=== PATIENT | male | born 1940 | race Caucasian/White ===

== ENCOUNTER 2020-03-19 15:23 | Inpatient (IN) | payer MEDICARE ==
[~2020-03-19] VITALS: Ht 185.4 cm; Wt 85.3 kg
[2020-03-19 15:35] VITALS: BP 139/82
[2020-03-19] MEDS ORDERED: ACETAMINOPHEN TAB 650MG DOSE (2X325MG) PO PRN (16:00)
--- NOTE | 2020-03-19 16:17 | HPEPDOC ---
Cupboard Builder Note DATE OF ADMISSION: 03.19.2020 DATE OF SERVICE: 03/19/2020 TIME OF ADMISSION: Please refer to physician's admission order. SOURCE OF ADMISSION INFORMATION: Medical records and patient CHIEF COMPLAINT: Left hemiparesis, siezures ADMITTING DIAGNOSES Bifrontal subarachnoid hemorrhage. Possible amyloid angiopathy. Acute bilateral strokes. Suspected focal seizures impacting left upper extremity. Hypoattenuating left thyroid lesion. HISTORY OF PRESENT ILLNESS: This is an 79-year-old gentleman with a history of hypertension, diabetes, CKD3, transferred from [facility] in [place] today. He was admitted there 03/12/2020 with new-onset left upper extremity weakness and paresthesias. CT scan was noted for hyperdensity in the bifrontal lobes and right anterior parietal lobe at the local hospital and he was transferred to [facility] for further workup and treatment of subarachnoid hemorrhage without evidence of stenosis, AVM or aneurysm. Also noted was hypoattenuating lesion in the left thyroid, TSH WNL. Neurosurgery did not feel surgical intervention required. Repeat CT 03/15/2020 noted stable. An MRI demonstrated acute lacunar infarcts bilaterally. EEG N/V EEG monitoring did not show epileptic activity, however, intermittent weakness and clumsiness of the left hand led to suspicion for focal seizures and presumptive Depakote was begun. Aspirin low-dose begun, precluded from use of NSAIDs or anticoagulants. A cardiogram was unremarkable including LUCHO. Loop recorder placed Feb. for cardioembolic source. Does not appear echo was performed. REVIEW OF SYSTEMS: The following is a completed review of systems and has been reviewed. Review of systems otherwise unremarkable. PAIN: Patient self reports no pain. EYES: No recent vision changes. EARS, NOSE, & THROAT: No throat pain, or dysphagia, or rhinorrhea. CARDIOVASCULAR: Denies chest pain or palpitations. PULMONARY: Denies shortness of breath. GASTROINTESTINAL: Denies constipation/diarrhea, last BM this morning. GENITOURINARY: Continent. MUSCULOSKELETAL: No premorbid admitted complaints NEUROLOGICAL: Left-sided weakness and incoordination, possible focal seizure activity. HEMATOLOGICAL: No prior history of bruising or significant problems. SKIN: Intact. PSYCHIATRIC: Unremarkable, apparently was some issue of behavioral change and sundowning. Currently appears stable. All other review of systems found to be negative. PAST MEDICAL HISTORY: Hypertension. CK D Delirium. Type 2 diabetes mellitus. Told he may need cataract. PAST SURGICAL HISTORY: None ALLERGIES: Please see below. MEDICATIONS: Please see below. FAMILY HISTORY: Mother at 90 after 2 cardiac procedures, father in the late 60s from an [place].. SOCIAL HISTORY: Previously entirely independent, nonsmoker, nondrinker. No substance abuse. Lives with spouse in a two-story home on the first floor, 30 steps to reach pensions from parking place with multiple steps broken. Interim plan is for daughter to drive both parents down to her more accessible home in [place], [place] and for them to stay with her. . DIET: Regular. PHYSICAL EXAMINATION: VITAL SIGNS: Please see below. GENERAL: Pleasant and cooperative, athletic appearing gentleman appearing younger than his stated age. No acute distress. Alert and oriented times three. HEENT: PERRL. Extraocular movements intact. Clear conjunctiva. No adenopathy, thyromegaly or bruits. Full for flexion, extension, bilateral bending and rotation. Cervical spine for age. CARDIOVASCULAR: Regular rate and rhythm. No murmurs, rubs, or gallops. Recent placement of Loop monitor noted over left pectoral region. LUNGS: Clear to auscultation bilaterally. No wheezes. No rhonchi. ABDOMEN: Soft, scaphoid nontender, nondistended. Positive bowel sounds. Normal active bowel sounds. NEUROLOGICAL: Alert and oriented times three. Cranial nerves II through XII intact. Able to perform 2 digit arithmetic, spell world forward and backwards, no evidence of apraxia. Sensation intact all 4 extremities. Reflexes brisk bilateral biceps, triceps, brachial radialis, patellar and Achilles tendon jerks. Hyperreflexive. Left no clonus, Babinskis present. Positive pronator drift. Left upper extremity. Bilateral decreased coordination, left worse than right on finger to nose testing. EXTREMITIES: [5\5 strength right 4 over 5 left biceps, triceps, wrist extensors, interossei. 5\5 strength right, 4+ over 5 left quadriceps, tibialis anterior, hamstrings. Full bilateral forward flexion of shoulders. Decreased range of motion of bilateral Fabere maneuver. SKIN: Intact. LABORATORY DATA: Please see below. IMAGING: Imaging documentation personally reviewed by record. FUNCTIONAL STATUS: Premorbid: Independent with all activities of daily life as well as mobility. On Admission: Minimal assistance to contact-guard assistance for lower body dressing, shower transfers. Minimal assistance with gait of 1 person for 90 feet 2. Difficulty with left lower extremity foot clearance assistance for bathing, upper body dressing, bed chair and wheelchair transfers, toilet transfers, ambulation. Minimum assistance for grooming. Supervision for memory and problem solving. Modified independence for social interaction, expression, comprehension, bowel and bladder. GOALS: Resumed complete independence in mobility, self-care, activities. 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 PLAN: Bifrontal subarachnoid hemorrhage. Possible amyloid angiopathy. Acute bilateral strokes. Suspected focal seizures impacting left upper extremity. Hypoattenuating left thyroid lesion. 1. Rehab- PT/OT advance gait and ADls, strengthen/stretch/maintain ROM all 4 limbs, pain management with appropriate modalities and accommodation medications as indicated 2. Neuro- observe for evidence of seizure activity, precautions for left sided incoordination, balance and weakness issues, monitor for cognitive changes. 3. Cardiac-appears currently stable. Will consult with hospitalist, and possibly cardiology regarding the loop monitor, and observe for adverse impact if any on increasing level of exercise intensity. 5. Endo-history of diabetes. Check pattern with continue Accu-Cheks and adjust medications as indicated 6. DVT ppx- MIGUEL A, no NSAIDS or anticoagulants s/p recent bleed. 7. Pain- Tylenol as indicated 8. Dispo- home with daughter. POST ADMISSION PHYSICIAN EVALUATION: Medical and functional status: Description of medical status, medical assessment: As above. Rehabilitation diagnosis and current and prior cold morbid medical conditions as above. Risk of complications and plans to mitigate them as above. Description of functional status current status is as above. Prior status as above. Status compared to preadmission: There are no clinically significant differences between the patient's current status and the information described on the preadmission screening document. Treatment plan anticipated: Treatment plan is as described above. Required disciplines including physical therapy, occupational therapy, others as noted above. Intensity of services: 3 hours a day, 6 days a week. Special considerations: There are no specific special or safety considerations that would likely preclude immediate implementation of an intensive rehabilitation program or subsequently influence the plan of care. ATTESTATION: Considering all the information above, it is my best judgment that this patient requires intensive rehabilitation therapy as described above and an inpatient hospital environment due to the complexity of nursing, medical, and rehabilitation needs required by the patient. Furthermore, this patient can reasonably be expected to participate in and benefit from an inpatient rehabilitation stay with an interdisciplinary team approach to the delivery of rehabilitation care under the direction and supervision of rehabilitation physician. Risk for medical clinical complications include behavioral, DVT, fall s, glycemic changes, hypertensive, or episodes, seizure and spasticity PROGNOSIS: Excellent. ESTIMATED LENGTH OF STAY:5- 7 days. PROJECTED DISCHARGE DESTINATION: Home with family support and any durable medical equipment required to increase functional safety and mobility. TIME SPENT COUNSELING AND COORDINATING INITIAL CARE: Greater than 60 minutes. Vital Signs Vital Sign - Last 24 Hours 03/19/20 15:35 Temp 98.2 Pulse 76 Resp 20 B/P (MAP) 139/82 (101) Pulse Ox 97 O2 Delivery Room Air Home Medications Scheduled Allopurinol (Allopurinol) 100 Mg Tablet, 100 MG PO DAILY, (Reported) Aspirin (Aspirin EC) 81 Mg Tablet.dr, 81 MG PO DAILY, (Reported) Divalproex Sodium (Depakote) 500 Mg Tablet.dr, 500 MG PO BID, (Reported) Docusate Sodium (Colace) 100 Mg Capsule, 100 MG PO BID, (Reported) Enoxaparin Sodium (Enoxaparin Sodium) 40 Mg/0.4 Ml Syringe, 40 MG SC DAILY, (Reported) RECEIVED AT [facility], FINISH DATE 04/16/20 Glimepiride (Glimepiride) 2 Mg Tablet, 2 MG PO ACB, (Reported) Losartan Potassium (Losartan Potassium) 100 Mg Tablet, 100 MG PO QPM, (Reported) Metformin HCl (Metformin HCl ER) 500 Mg Tab.er.24h, 500 MG PO QAM, (Reported) Multivitamins (Thera M Plus Tablet) 1 Each Tablet, 1 TAB PO DAILY, (Reported) Scheduled PRN Acetaminophen (Acetaminophen) 325 Mg Tablet, 650 MG PO Q6H PRN for PAIN, (Reported) Allergies Coded Allergies: No Known Allergies (Verified Allergy, Unknown, 03/19/20) A-FIB/CHADSVASC A-FIB History Current/History of A-Fib/PAF?: No Current PO Anticoag Therapy: No Age/Risk Factor Scoring CHADSVASC: CHADSVASC Response (Comments) Value Age Risk Factor Age >/= 75 years old 2 Total 2 RADHA NICHOLS MD Mar 19, 2020 16:17
[2020-03-19] MEDS ORDERED: ALLO100T PO (16:19)
[2020-03-19] MEDS ORDERED: DEPA1TAB3 PO (16:19)
[2020-03-19] MEDS ORDERED: VITMTA PO (16:19)
[2020-03-19] MEDS ORDERED: GLIM2TAB4 PO (16:19)
[2020-03-19] MEDS ORDERED: ASPI81TA26 PO (16:19)
[2020-03-19] MEDS ORDERED: ACET1TAB55 PO (16:19)
[2020-03-19] MEDS ORDERED: METF-838 PO (16:19)
[2020-03-19] MEDS ORDERED: LOSA100T50 PO (16:19)
[2020-03-19] MEDS ORDERED: ENOX40IN3 SC (16:20)
[2020-03-19] MEDS ORDERED: COLA100C5 PO (16:20)
[2020-03-19 20:30] VITALS: BP 155/83
[2020-03-19] MEDS: DIVALPROEX 250MG *ER* TAB PO SCH (20:43)
[2020-03-19] MEDS: DOCUSATE SODIUM 100 MG CAP PO SCH (20:43)
[2020-03-20 05:59] VITALS: BP 110/57
[2020-03-20 06:00] VITALS: BP 110/57
[2020-03-20 07:34] LABS: BASO # 0.1 10^3/uL (0.0-0.2); EOS # 0.4 10^3/uL (0.0-0.5); EOS % 3.7 % (0.0-3.0); HEMATOCRIT 45.4 % (42.0-52.0); HEMOGLOBIN 14.2 g/dl (13.5-17.5); LYMPH # 1.6 10^3/uL (1.5-5.0); LYMPH % 15.2 % (24.0-44.0); MEAN CORPUSCULAR HEMOGLOBIN 31.1 pg (27.0-33.0); MEAN CORPUSCULAR HGB CONC 31.3 g/dl (32.0-36.5); MEAN CORPUSCULAR VOLUME 99.3 fl (80.0-96.0); MONO # 0.6 10^3/uL (0.0-0.8); MONO % 5.7 % (0.0-5.0); NEUTROPHILS # 7.7 10^3/uL (1.5-8.5); NEUTROPHILS % 73.5 % (36.0-66.0); PLATELET COUNT, AUTOMATED 238 10^3/uL (150-450); RED BLOOD COUNT 4.57 10^6/uL (4.30-6.10); WHITE BLOOD COUNT 10.5 10^3/uL (4.0-10.0)
[2020-03-20 08:07] LABS: BLOOD UREA NITROGEN 19 MG/DL (7-18); CARBON DIOXIDE LEVEL 25 MEQ/L (21-32); CHLORIDE LEVEL 109 MEQ/L (98-107); CREATININE FOR GFR 1.19 MG/DL (0.70-1.30); GLOMERULAR FILTRATION RATE > 60.0 (>35); GLUCOSE, FASTING 142 MG/DL (70-100); POTASSIUM SERUM 4.6 MEQ/L (3.5-5.1); SODIUM LEVEL 142 MEQ/L (136-145)
[2020-03-20 08:08] LABS: ALBUMIN 3.1 GM/DL (3.2-5.2); ALT/SGPT 34 U/L (12-78); BILIRUBIN,TOTAL 0.6 MG/DL (0.2-1.0); CALCIUM LEVEL 8.9 MG/DL (8.8-10.2); TOTAL PROTEIN 6.6 GM/DL (6.4-8.2)
[2020-03-20] MEDS: MULTIVITAMINS/MINERALS THERAP 1 TAB PO SCH (08:29)
[2020-03-20] MEDS: GLIMEPIRIDE 2 MG TAB PO SCH (08:29)
[2020-03-20] MEDS: metFORMIN XR 500MG TAB *GLUCOPHAGE XR PO SCH (08:30)
[2020-03-20] MEDS: ASPIRIN 81 MG ENTERIC TAB PO SCH (08:30)
[2020-03-20] MEDS: DOCUSATE SODIUM 100 MG CAP PO SCH ×2 (08:30→20:18)
[2020-03-20] MEDS: allopurinoL 100 MG TAB PO SCH (08:30)
[2020-03-20] MEDS: DIVALPROEX 250MG *ER* TAB PO SCH ×2 (08:30→20:18)
[2020-03-20] MEDS: LOSARTAN 50MG TABLET PO SCH (08:36)
--- NOTE | 2020-03-20 11:19 | IPNPDOC ---
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 No significant history of cardiopulmonary or other medical conditions. REVIEW OF SYSTEMS: GASTROINTESTINAL: Denies constipation/diarrhea, last BM this morning. GENITOURINARY: Continent. MUSCULOSKELETAL: No premorbid admitted complaints NEUROLOGICAL: Left-sided weakness and incoordination, possible focal seizure activity. HEMATOLOGICAL: No prior history of bruising or significant problems. SKIN: Intact. PSYCHIATRIC: Unremarkable, apparently was some issue of behavioral change and sundowning. Currently appears stable. All other review of systems found to be negative. OBJECTIVE: PHYSICAL EXAMINATION: VITAL SIGNS: Please see below. GENERAL: Pleasant and cooperative, athletic appearing gentleman appearing younger than his stated age. No acute distress. Alert and oriented times three. HEENT: PERRL. Extraocular movements intact. Clear conjunctiva. No adenopathy, thyromegaly or bruits. Full forward flexion, extension, bilateral bending and rotation Cervical spine for age. CARDIOVASCULAR: Regular rate and rhythm. No murmurs, rubs, or gallops. Recent placement of Loop monitor noted over left pectoral region, slight ecchymosis. LUNGS: Clear to auscultation bilaterally. No wheezes. No rhonchi. ABDOMEN: Soft, scaphoid nontender, nondistended. Positive bowel sounds. Normal active bowel sounds. NEUROLOGICAL: Alert and oriented times three. Cranial nerves II through XII intact. Reflexes brisk bilateral biceps, triceps, brachial radialis, patellar and Achilles tendon jerks. Hyperreflexive. Positive pronator drift Left upper extremity. Bilateral decreased coordination, left worse than right on finger to nose testing. EXTREMITIES: [5\5 strength right 4/ 5 left biceps, triceps, wrist extensors, interossei. 5\5 strength right, 4+/ 5 left quadriceps, tibialis anterior, hamstrings. Full bilateral forward flexion of shoulders. SKIN: Intact. FUNCTIONAL STATUS: Pt currently requires CGA with transfers and ambulation without AD and Min A when performing higher level balance activities in single leg stance. GOALS: Resumed complete independence in mobility, self-care, activities. LABORATORY DATA: Reviewed. Please see below. MICROBIOLOGY: Please see below. ASSESSMENT AND PLAN: Bifrontal subarachnoid hemorrhage. Possible amyloid angiopathy. Acute bilateral strokes. Suspected initial focal seizures impacting left upper extremity. Hypoattenuating left thyroid lesion. 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 He was admitted there 03/12/2020 with new-onset left upper extremity weakness and paresthesias. CT scan was noted for hyperdensity in the bifrontal lobes and right anterior parietal lobe at the local hospital and he was transferred to [facility] for further workup and treatment of subarachnoid hemorrhage without evidence of stenosis, AVM or aneurysm. Also noted was hypoattenuating lesion in the left thyroid, TSH WNL. Neurosurgery did not feel surgical intervention required. Repeat CT 03/15/2020 noted stable. An MRI demonstrated acute lacunar infarcts bilaterally. EEG N/V EEG monitoring did not show epileptic activity, however, intermittent weakness and clumsiness of the left hand led to suspicion for focal seizures and presumptive Depakote was begun. Aspirin low-dose begun, precluded from use of NSAIDs or anticoagulants. A cardiogram was unremarkable including LUCHO. Loop recorder placed for assessment of possible cardioembolic source. PLAN: 1. Rehab- PT/OT advance gait and ADls, strengthen/stretch/maintain ROM all 4 limbs, pain management with appropriate modalities and accommodation medications as indicated, monitor for cardiac symptoms and document. 2. Neuro- observe for evidence of seizure activity, precautions for left sided incoordination, balance and weakness issues, monitor for cognitive changes. 3. Cardiac-appears currently stable. Evidently [facility] cardiology will continue to monitor the loop monitor, and observe for adverse impact if any on increasing level of exercise intensity. Instructed patient to create a log which he can record, time, date, and any new symptoms or sensations. Patient also to keep a record of his therapy schedule, so it can be correlated with any findings on the loop monitor that were asymptomatic. 5. Endo-history of diabetes. Check pattern with continue Accu-Cheks and adjust medications as indicated. FBS 135 will get HbA1c to better assess DM level of baseline control. 6. DVT ppx- MIGUEL A, no NSAIDS or anticoagulants s/p recent bleed. 7. Pain- Tylenol as indicated 8. Dispo- home with daughter in [place]. TIME SPENT: Chart Review, examination and documentation 30 minutes. Allergies Coded Allergies: No Known Allergies (Verified Allergy, Unknown, 03/19/20) Vital Signs Vital Signs Date Time Temp Pulse Resp B/P (MAP) Pulse Ox O2 Delivery O2 Flow Rate FiO2 03/20/20 08:36 144/82 03/20/20 06:00 98.1 75 18 99 Room Air Laboratory Data CBC/BMP Laboratory Tests 03/20/20 07:07 Labs 24H Laboratory Tests 2 03/19/20 20:08: Bedside Glucose (Misc Panel) 231H 03/20/20 05:47: Bedside Glucose (Misc Panel) 135H 03/20/20 07:07: Immature Granulocyte % (Auto) 0.9, Neutrophils (%) (Auto) 73.5H, Lymphocytes (%) (Auto) 15.2L, Monocytes (%) (Auto) 5.7H, Eosinophils (%) (Auto) 3.7H, Basophils (%) (Auto) 1.0, Neutrophils # (Auto) 7.7, Lymphocytes # (Auto) 1.6, Monocytes # (Auto) 0.6, Eosinophils # (Auto) 0.4, Basophils # (Auto) 0.1, Nucleated Red Blood Cells % (auto) 0.0, Anion Gap 8, Glomerular Filtration Rate > 60.0, Calcium Level 8.9, Total Bilirubin 0.6, Aspartate Amino Transf (AST/SGOT) 15, Alanine Aminotransferase (ALT/SGPT) 34, Alkaline Phosphatase 94, Total Protein 6.6, Albumin 3.1L, Albumin/Globulin Ratio 0.9 Current Medications Current Medications Current Medications Medications (Trade) Dose Ordered Sig/Parveen Route PRN Reason Start Time Stop Time Status Last Admin Dose Admin Acetaminophen (Tylenol Tab) 650 mg Q4HP PRN PO MILD PAIN (PS 1-4) 03/19/20 16:00 Allopurinol (Zyloprim) 100 mg DAILY PO 03/20/20 09:00 03/20/20 08:30 Aspirin (Ecotrin) 81 mg DAILY PO 03/20/20 09:00 03/20/20 08:30 Divalproex Sodium (Depakote Er) 500 mg Q12H PO 03/19/20 21:00 03/20/20 08:30 Docusate Sodium (Colace) 100 mg BID PO 03/19/20 21:00 03/20/20 08:30 Glimepiride (Amaryl) 2 mg DAILY@0730 PO 03/20/20 07:30 03/20/20 08:29 Home Med (Med Rec Complete!) ASDIRECTED XX 03/19/20 16:30 03/19/20 16:23 DC Losartan Potassium (Cozaar) 100 mg DAILY PO 03/20/20 09:00 03/20/20 08:36 Metformin HCl (Glucophage Xr) 500 mg DAILY PO 03/20/20 09:00 03/20/20 08:30 Multivitamins (Theragram-M) 1 tab DAILY PO 03/20/20 09:00 03/20/20 08:29 RADHA NICHOLS MD Mar 20, 2020 11:19
--- NOTE | 2020-03-20 12:23 | HPEPDOC ---
[facility] Medical History & Physical Date of Admission Mar 19, 2020 Date of Service: Mar 20, 2020 Attending Physician: Mela Desir MD History and Physical MEDICAL CONSULT H&P HISTORY OF PRESENT ILLNESS: Patient is an 79-year-old male with past medical history of hypertension, diabetes mellitus type 2, CK D stage III and recent bifrontal subarachnoid hemorrhage likely secondary to amyloid angiopathy, bilateral stroke, suspected focal seizures and left thyroid lesion who was admitted to ARU 03/19/20 for continued rehabilitation. According to notes the patient resented initially on 03/12/2020 the chief complaint of left upper extremity weakness/parasthesia. He has left arm appeared deformed and he was unable to control it. His drove him to [facility] E further assessed. CT scan showed areas of hyperdensity in the bifrontal lobes and the right anterior parietal lobe at the time. He did not receive any additional medications or intervention but was later transferred to [facility] for further evaluation. At [facility], neurosurgery was consult it but no surgical intervention was required for bifrontal subarachnoid hemorrhage. Initial CTA of the head and neck showed no stenosis AVM or aneurysm outside of the bifrontal subarachnoid hemorrhage. There was a hypoattenuating lesion in the left thyroid which was incidentally found. Repeat CT of the head was stable, MRI of the brain showed acute lacunar infarcts bilaterally. Aspirin was resumed. EEG and the EEG monitoring did not show epileptic activity however, given intermittent weakness and clumsiness of the left hand there was a suspicion for focal seizures. Depakote was started. Echocardiogram was unremarkable and LUCHO with bubble study was negative. Due to bilateral infarcts, a loop recorder was placed to evaluate for cardioembolic source. Losartan was started for hypertension. TSH was within normal limits with the incidental finding of left thyroid lesion. He was discharged to rehabilitation in our acute rehabilitation unit on 03/19/2020. On evaluation today, the patient had no acute complaints and denies chest pain, shortness of breath, nausea, vomiting, fevers, chills, abdominal pain, headedness, headaches, dizziness, numbness or tingling in arms or legs, weakness. REVIEW OF SYSTEMS: Neg except for what is mentioned above PAST MEDICAL HISTORY: 1. HTN 2. DM type II 3. CKD Stage III 4. Recent bifrontal subarachnoid hemorrhage likely 2/2 to amyloid angiopathy 5. Acute bilateral strokes cannot r/o cardioembolic cause, on loop recorder 6. Suspecting focal seizure d/o 7. Left thyroid lesion PAST SURGICAL HISTORY: None FAMILY HISTORY: Noncontributory SOCIAL HISTORY: Hx of tobacco use, denies illicit drug or alcohol use. Lives locally. Full Code. ALLERGIES: Please see below. HOME MEDICATIONS: Please see below. PHYSICAL EXAMINATION: VS: Please see below CONSTITUTIONAL: No acute distress, resting comfortably, AAO x 3 EYES: PERRLA, EOM intact HENT, MOUTH: Normocephalic, atraumatic, moist mucous membranes, NECK: SUPPLE, no JVD, no lymphadenopathy, no carotid bruit CV: Regular rate and rhythm, S1S2 normal, no murmurs/rubs/gallops RESPIRATORY: Clear to auscultation bilaterally, no rales/rhonchi/wheezes GI: BS positive in 4 quadrants, soft, nontender, nondistended, no rebound or guarding, no organomegaly : Deferred MUSCULOSKELETAL: Normal ROM. No cyanosis, clubbing, swelling, joint deformity, extremity edema INTEGUMENTARY: Intact, no rashes, no lesions, no erythema NEUROLOGIC: Cranial Nerves II-XII are intact, no focal deficits, awake alert oriented 3, no aphasia, intact to light touch sensation, strength 5 out of 5 in right arm, right leg, left leg, left arm PSYCHIATRIC: Mood and affect are normal LABORATORY DATA: Please see below IMAGING: No new imaging Please review transfer notes to see prior imaging done ASSESSMENT: 79-year-old male with past medical history of hypertension, diabetes mellitus type 2, CK D stage III and recent bifrontal subarachnoid hemorrhage likely secondary to amyloid angiopathy, bilateral stroke, suspected focal seizures and left thyroid lesion who was admitted to ARU 03/19/20 for continued rehabilitation. PLAN: Acute bilateral strokes cannot r/o cardioembolic cause, on loop recorder -No neurological deficits currently -Loop recorder managed by cardiology who placed it -C/w PT/OT, ASA. Not on statin med -F/u with Neurology Stroke clinic in 3 months at [facility]. Recent bifrontal subarachnoid hemorrhage likely 2/2 to amyloid angiopathy -No surgical intervention required -Avoid use of all blood thinning medications including Advil, naproxen, Aleve, Motrin -On ASA Suspecting focal seizure d/o -No seizure activity since admission -C/w Depakote -Regularly monitor ammonia level, CMP -Per discharge instructions, avoid driving until f/u with PCP Left thyroid lesion -TSH wnl -F/u with PCP HTN -Stable. -C/w current medications DM type II -BS >200, not well controlled -Currently on glimepiride, metformin -Was on regular diet, just switched to consistent carbohydrate diet today -May consider switching to insulins only while here if BS remain uncontrolled, will be easier to control. CKD Stage III -Cr wnl -Avoid nephrotoxic medications. DVT px -On ASA, other AC CI 2/2 to SAH above DISPOSITION: Admitted to ARU for further evaluation. Thank you kindly for consult. Please call us at any time if needed. Vital Signs Vital Signs Date Time Temp Pulse Resp B/P (MAP) Pulse Ox O2 Delivery O2 Flow Rate FiO2 03/20/20 08:36 144/82 03/20/20 06:00 98.1 75 18 99 Room Air Laboratory Data Labs 24H Laboratory Tests 2 03/19/20 20:08: Bedside Glucose (Misc Panel) 231H 03/20/20 05:47: Bedside Glucose (Misc Panel) 135H 03/20/20 07:07: Immature Granulocyte % (Auto) 0.9, Neutrophils (%) (Auto) 73.5H, Lymphocytes (%) (Auto) 15.2L, Monocytes (%) (Auto) 5.7H, Eosinophils (%) (Auto) 3.7H, Basophils (%) (Auto) 1.0, Neutrophils # (Auto) 7.7, Lymphocytes # (Auto) 1.6, Monocytes # (Auto) 0.6, Eosinophils # (Auto) 0.4, Basophils # (Auto) 0.1, Nucleated Red Blood Cells % (auto) 0.0, Anion Gap 8, Glomerular Filtration Rate > 60.0, Calcium Level 8.9, Total Bilirubin 0.6, Aspartate Amino Transf (AST/SGOT) 15, Alanine Aminotransferase (ALT/SGPT) 34, Alkaline Phosphatase 94, Total Protein 6.6, Albumin 3.1L, Albumin/Globulin Ratio 0.9 03/20/20 11:29: Bedside Glucose (Misc Panel) 196H CBC/BMP Laboratory Tests 03/20/20 07:07 Home Medications Scheduled Allopurinol (Allopurinol) 100 Mg Tablet, 100 MG PO DAILY Aspirin (Aspirin EC) 81 Mg Tablet.dr, 81 MG PO DAILY Divalproex Sodium (Depakote) 500 Mg Tablet.dr, 500 MG PO BID Docusate Sodium (Colace) 100 Mg Capsule, 100 MG PO BID Enoxaparin Sodium (Enoxaparin Sodium) 40 Mg/0.4 Ml Syringe, 40 MG SC DAILY RECEIVED AT [facility], FINISH DATE 04/16/20 Glimepiride (Glimepiride) 2 Mg Tablet, 2 MG PO ACB Losartan Potassium (Losartan Potassium) 100 Mg Tablet, 100 MG PO QPM Metformin HCl (Metformin HCl ER) 500 Mg Tab.er.24h, 500 MG PO QAM Multivitamins (Thera M Plus Tablet) 1 Each Tablet, 1 TAB PO DAILY Scheduled PRN Acetaminophen (Acetaminophen) 325 Mg Tablet, 650 MG PO Q6H PRN for PAIN Allergies Coded Allergies: No Known Allergies (Verified Allergy, Unknown, 03/19/20) A-FIB/CHADSVASC A-FIB History Current/History of A-Fib/PAF?: No Current PO Anticoag Therapy: No Age/Risk Factor Scoring CHADSVASC: CHADSVASC Response (Comments) Value Age Risk Factor Age >/= 75 years old 2 Gender Risk Factor Male 0 Hx of CHF No 0 Hx of HTN Yes 1 Hx of Stroke/TIA/or VTE Yes 2 Hx of Diabetes Yes 1 Hx of Vascular Disease No 0 Total 6 Treatment Treatment ordered: NONE Other anticoagulant ordered: on ASA only Mela Desir MD Mar 20, 2020 12:23
[2020-03-20 13:00] LABS: HEMOGLOBIN A1c 5.7 %
[2020-03-20 14:00] VITALS: BP 133/65
[2020-03-20 20:15] VITALS: BP 133/73
[2020-03-21 06:03] VITALS: BP 114/58
[2020-03-21] MEDS: allopurinoL 100 MG TAB PO SCH (07:30)
[2020-03-21] MEDS: GLIMEPIRIDE 2 MG TAB PO SCH (07:30)
[2020-03-21] MEDS: metFORMIN XR 500MG TAB *GLUCOPHAGE XR PO SCH (07:30)
[2020-03-21] MEDS: MULTIVITAMINS/MINERALS THERAP 1 TAB PO SCH (07:30)
[2020-03-21] MEDS: ASPIRIN 81 MG ENTERIC TAB PO SCH (07:31)
[2020-03-21] MEDS: DOCUSATE SODIUM 100 MG CAP PO SCH ×2 (07:31→20:39)
[2020-03-21] MEDS: LOSARTAN 50MG TABLET PO SCH (07:31)
[2020-03-21] MEDS: DIVALPROEX 250MG *ER* TAB PO SCH (07:32)
--- NOTE | 2020-03-21 08:54 | IPNPDOC ---
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 No significant history of cardiopulmonary or other medical conditions. Had a bit of excitement yesterday when spilled coffee, ran down inner left thigh with some erythema, no blisters, no breakdown. REVIEW OF SYSTEMS: GASTROINTESTINAL: Denies constipation/diarrhea, last BM this morning. GENITOURINARY: Continent. MUSCULOSKELETAL: No premorbid admitted complaints NEUROLOGICAL: Left-sided weakness and incoordination, possible focal seizure activity. HEMATOLOGICAL: No prior history of bruising or significant problems. SKIN: Intact. stage1 burn inner thigh PSYCHIATRIC: Unremarkable, apparently was some issue of behavioral change and . Currently appears stable. All other review of systems found to be negative. OBJECTIVE: PHYSICAL EXAMINATION: VITAL SIGNS: Please see below. GENERAL: Pleasant and cooperative, athletic appearing gentleman appearing younger than his stated age. No acute distress. Alert and oriented times three. HEENT: PERRL. Extraocular movements intact. Clear conjunctiva. No adenopathy, thyromegaly or bruits. Full forward flexion, extension, bilateral bending and rotation Cervical spine for age. CARDIOVASCULAR: Regular rate and rhythm. No murmurs, rubs, or gallops. Recent placement of Loop monitor noted over left pectoral region, slight ecchymosis. LUNGS: Clear to auscultation bilaterally. No wheezes. No rhonchi. ABDOMEN: Soft, scaphoid nontender, nondistended. Positive bowel sounds. Normal active bowel sounds. NEUROLOGICAL: Alert and oriented times three. Cranial nerves II through XII intact. Bilateral decreased coordination, left worse than right on finger to nose testing. EXTREMITIES: 5\5 strength right 4+/ 5 left biceps, triceps, wrist extensors, interossei. 5\5 strength right, 4+/ 5 left quadriceps, tibialis anterior, hamstrings. Full bilateral forward flexion of shoulders. No edema, no calf tenderness. SKIN: Intact no bkdwn left inner thigh FUNCTIONAL STATUS: Pt currently requires CGA with transfers and ambulation without AD and Min A when performing higher level balance activities in single leg stance. Pt (I) at baseline without use of AD. Pt and family planning d/c to daughter's home in [place] with supervision. Pt will benefit from skilled PT to progress pt dynamic balance and safety awareness prior to d/c. GOALS: Resume complete independence in mobility, self-care, activities. LABORATORY DATA: Reviewed. Please see below. MICROBIOLOGY: Please see below. ASSESSMENT AND PLAN: Bifrontal subarachnoid hemorrhage. Possible amyloid angiopathy. Acute bilateral strokes. Suspected initial focal seizures impacting left upper extremity. Hypoattenuating left thyroid lesion. 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 He was admitted there 03/12/2020 with new-onset left upper extremity weakness and paresthesias. CT scan was noted for hyperdensity in the bifrontal lobes and right anterior parietal lobe at the local hospital and he was transferred to [facility] for further workup and treatment of subarachnoid hemorrhage without evidence of stenosis, AVM or aneurysm. Also noted was hypoattenuating lesion in the left thyroid, TSH WNL. Neurosurgery did not feel surgical intervention required. Repeat CT 03/15/2020 noted stable. An MRI demonstrated acute lacunar infarcts bilaterally. EEG N/V EEG monitoring did not show epileptic activity, however, intermittent weakness and clumsiness of the left hand led to suspicion for focal seizures and presumptive Depakote was begun. Aspirin low-dose begun, precluded from use of NSAIDs or anticoagulants. A cardiogram was unremarkable including LUCHO. Loop recorder placed for assessment of possible cardioembolic source. Thus far no cardiopulmonary sympto ms or VS abnormalities. PLAN: 1. Rehab- PT/OT advance gait and ADls, strengthen/stretch/maintain ROM all 4 limbs, pain management with appropriate modalities and accommodation medications as indicated, monitor for cardiac symptoms and document. 2. Neuro- observe for evidence of seizure activity, precautions for left sided incoordination, balance and weakness issues, monitor for cognitive changes. 3. Cardiac-appears currently stable. Evidently [facility] cardiology will continue to monitor the loop monitor, and observe for adverse impact if any on increasing level of exercise intensity. Instructed patient to create a log which he can record, time, date, and any new symptoms or sensations. Patient also to keep a record of his therapy schedule, so it can be correlated with any findings on the loop monitor that were asymptomatic. 5. Endo-history of diabetes. Check pattern with continue Accu-Cheks and adjust medications as indicated. FBS 135 HbA1c 5.7 demonstrating good DM level of baseline control, will continue AM checks only, if remains stable, dc next week. 6. DVT ppx- MIGUEL A, no NSAIDS or anticoagulants s/p recent bleed. 7. Pain- Tylenol as indicated 8. Coffee burn yesterday, no adverse sequelae keep clean add topical cremes 9. Dispo- home with daughter in [place]. TIME SPENT: Chart Review, examination and documentation 30 minutes. Allergies Coded Allergies: No Known Allergies (Verified Allergy, Unknown, 03/19/20) Vital Signs Vital Signs Date Time Temp Pulse Resp B/P (MAP) Pulse Ox O2 Delivery O2 Flow Rate FiO2 03/21/20 07:31 114/58 03/21/20 06:03 97.8 68 17 97 Room Air Laboratory Data Labs 24H Laboratory Tests 2 03/20/20 11:29: Bedside Glucose (Misc Panel) 196H 03/20/20 16:16: Bedside Glucose (Misc Panel) 129H 03/20/20 19:45: Bedside Glucose (Misc Panel) 160H 03/21/20 05:28: Bedside Glucose (Misc Panel) 112H Current Medications Current Medications Current Medications Medications (Trade) Dose Ordered Sig/Parveen Route PRN Reason Start Time Stop Time Status Last Admin Dose Admin Acetaminophen (Tylenol Tab) 650 mg Q4HP PRN PO MILD PAIN (PS 1-4) 03/19/20 16:00 Allopurinol (Zyloprim) 100 mg DAILY PO 03/20/20 09:00 03/21/20 07:30 Aspirin (Ecotrin) 81 mg DAILY PO 03/20/20 09:00 03/21/20 07:31 Divalproex Sodium (Depakote Er) 500 mg Q12H PO 03/19/20 21:00 03/21/20 07:32 Docusate Sodium (Colace) 100 mg BID PO 03/19/20 21:00 03/21/20 07:31 Glimepiride (Amaryl) 2 mg DAILY@0730 PO 03/20/20 07:30 03/21/20 07:30 Home Med (Med Rec Complete!) ASDIRECTED XX 03/19/20 16:30 03/19/20 16:23 DC Losartan Potassium (Cozaar) 100 mg DAILY PO 03/20/20 09:00 03/21/20 07:31 Metformin HCl (Glucophage Xr) 500 mg DAILY PO 03/20/20 09:00 03/21/20 07:30 Multivitamins (Theragram-M) 1 tab DAILY PO 03/20/20 09:00 03/21/20 07:30 RADHA NICHOLS MD Mar 21, 2020 08:54
[2020-03-21 10:00] VITALS: BP 114/58
[2020-03-21 14:00] VITALS: BP 141/65
[2020-03-21] MEDS: DIVALPROEX 500MG *ER* TAB PO SCH ×2 (14:35→20:40)
[2020-03-21 20:00] VITALS: BP 138/77
[2020-03-22 06:01] VITALS: BP 131/64
[2020-03-22] MEDS: ASPIRIN 81 MG ENTERIC TAB PO SCH (08:33)
[2020-03-22] MEDS: DIVALPROEX 500MG *ER* TAB PO SCH ×2 (08:33→20:25)
[2020-03-22] MEDS: LOSARTAN 50MG TABLET PO SCH (08:33)
[2020-03-22] MEDS: allopurinoL 100 MG TAB PO SCH (08:33)
[2020-03-22] MEDS: MULTIVITAMINS/MINERALS THERAP 1 TAB PO SCH (08:33)
[2020-03-22] MEDS: DOCUSATE SODIUM 100 MG CAP PO SCH ×2 (08:34→20:24)
[2020-03-22] MEDS: metFORMIN XR 500MG TAB *GLUCOPHAGE XR PO SCH (08:34)
[2020-03-22] MEDS: GLIMEPIRIDE 2 MG TAB PO SCH (08:34)
[2020-03-22 14:00] VITALS: BP 122/69
[2020-03-22 20:00] VITALS: BP 138/67
[2020-03-23 06:31] VITALS: BP 113/55
[2020-03-23] MEDS: metFORMIN XR 500MG TAB *GLUCOPHAGE XR PO SCH (08:40)
[2020-03-23] MEDS: GLIMEPIRIDE 2 MG TAB PO SCH (08:40)
[2020-03-23] MEDS: allopurinoL 100 MG TAB PO SCH (08:40)
[2020-03-23] MEDS: DIVALPROEX 500MG *ER* TAB PO SCH ×2 (08:41→20:50)
[2020-03-23] MEDS: LOSARTAN 50MG TABLET PO SCH (08:41)
[2020-03-23] MEDS: MULTIVITAMINS/MINERALS THERAP 1 TAB PO SCH (08:41)
[2020-03-23] MEDS: ASPIRIN 81 MG ENTERIC TAB PO SCH (08:41)
[2020-03-23] MEDS: DOCUSATE SODIUM 100 MG CAP PO SCH ×2 (08:41→20:50)
[2020-03-23 14:00] VITALS: BP 109/62
[2020-03-23 19:50] VITALS: BP 146/85
[2020-03-24] MEDS: GLIMEPIRIDE 2 MG TAB PO SCH (07:30)
[2020-03-24] MEDS: ASPIRIN 81 MG ENTERIC TAB PO SCH (09:00)
[2020-03-24] MEDS: LOSARTAN 50MG TABLET PO SCH (09:00)
[2020-03-24] MEDS: DOCUSATE SODIUM 100 MG CAP PO SCH ×2 (09:00→21:22)
[2020-03-24] MEDS: metFORMIN XR 500MG TAB *GLUCOPHAGE XR PO SCH (09:00)
[2020-03-24] MEDS: MULTIVITAMINS/MINERALS THERAP 1 TAB PO SCH (09:00)
[2020-03-24] MEDS: allopurinoL 100 MG TAB PO SCH (09:00)
[2020-03-24] MEDS: DIVALPROEX 500MG *ER* TAB PO SCH ×2 (09:25→21:22)
--- NOTE | 2020-03-24 09:26 | PMRNOTEPD ---
PMR Note Courtesy visit made to see patient in PCU Subjective 79 year old male previously doing well with excellent progress on ARU s/p SAH, CVAs, possible cardiac arrythmia with loop monitor, who ambulated to bathroom a nd evidently had a syncopal episode on commode, straining at stool. Found by team on his knees with small abrasion over right mastoid region and posterior occipital region, confused., Transferred for monitoring. I advised hospitalist team of Loop monitor and need to correlate with [facility] team if any events noted 10.25.20 around 1999 pm. Team and patient have been keeping log ready for any symptoms or changes during therapy, thus far uneventful until last night. Objective Alert, recognizes me, no distress. GENERAL: Pleasant and cooperative, athletic appearing gentleman appearing younger than his stated age. No acute distress. Alert and oriented times three. HEENT: PERRL. Extraocular movements intact. Clear conjunctiva. No adenopathy, thyromegaly or bruits. Full forward flexion, extension, bilateral bending and rotation Cervical spine for age. CARDIOVASCULAR: Regular rate and rhythm. I/ SM. Recent placement of Loop monitor noted over left pectoral region. LUNGS: Clear to auscultation bilaterally. No wheezes. No rhonchi. ABDOMEN: Soft, scaphoid nontender, nondistended. Positive bowel sounds. Normal active bowel sounds. NEUROLOGICAL: Alert and oriented times three. Cranial nerves II through XII intact. Bilateral decreased coordination, left worse than right but slightly better strength than on admission. Assessment Bifrontal subarachnoid hemorrhage. Probable syncopal episode related to vaso-vagal event Possible amyloid angiopathy. S/p bilateral strokes with coordination, fatigue issues Suspected initial focal seizures impacting left upper extremity, covered with anti siezure meds, doubt recurrence Hypoattenuating left thyroid lesion. 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 He was admitted there 03/12/2020 with new-onset left upper extremity weakness and paresthesias. CT scan was noted for hyperdensity in the bifrontal lobes and right anterior parietal lobe at the local hospital and he was transferred to [facility] for further workup and treatment of subarachnoid hemorrhage without evidence of stenosis, AVM or aneurysm. Also noted was hypoattenuating lesion in the left thyroid, TSH WNL. Neurosurgery did not feel surgical intervention required. Repeat CT 03/15/2020 noted stable and again 03/23/2020 after last night's episode. An MRI demonstrated acute lacunar infarcts bilaterally. EEG N/V EEG monitoring did not show epileptic activity, however, intermittent weakness and clumsiness of the left hand led to suspicion for focal seizures and presumptive Depakote was begun. Aspirin low-dose begun, precluded from use of NSAIDs or anticoagulants. A cardiogram was unremarkable including LUCHO. Loop recorder placed for assessment of possible cardioembolic source, need cardiology follow up on any events that may have been captured during last night's episode and clearance to return for exercise. Plan Patient observed on Telemetry today, apparently no new events, felt stable, will return to ARU. Await any updates from [facility] cardiology, continue log of activities and any symptoms, monitor VS. Resume all therapies tomorrow. RADHA NICHOLS MD Mar 24, 2020 09:26
[2020-03-24 18:42] VITALS: BP 110/69
[2020-03-24 20:15] VITALS: BP 131/69
[2020-03-25 05:51] VITALS: BP 127/67
[2020-03-25] MEDS: metFORMIN XR 500MG TAB *GLUCOPHAGE XR PO SCH (08:02)
[2020-03-25] MEDS: ASPIRIN 81 MG ENTERIC TAB PO SCH (08:02)
[2020-03-25] MEDS: DIVALPROEX 500MG *ER* TAB PO SCH ×2 (08:02→21:13)
[2020-03-25] MEDS: allopurinoL 100 MG TAB PO SCH (08:02)
[2020-03-25] MEDS: MULTIVITAMINS/MINERALS THERAP 1 TAB PO SCH (08:04)
[2020-03-25] MEDS: DOCUSATE SODIUM 100 MG CAP PO SCH ×2 (08:04→21:13)
[2020-03-25] MEDS: LOSARTAN 50MG TABLET PO SCH (08:04)
[2020-03-25] MEDS: MIRALAX *UNIT DOSE* 17GM PACKET PO SCH (08:04)
[2020-03-25] MEDS: GLIMEPIRIDE 2 MG TAB PO SCH (08:04)
[2020-03-25 14:00] VITALS: BP 117/65
--- NOTE | 2020-03-25 14:07 | IPNPDOC ---
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 No significant history of cardiopulmonary or other medical conditions. Had a bit of excitement over the weekend with overnight stay on telemetry after probable vasovagal/syncopal episode, no reported abnormalities on [place] remote monitoring, returned to floor last night and participated well in all therapies today, no new complaints. REVIEW OF SYSTEMS: GASTROINTESTINAL: Denies constipation/diarrhea, regular BM, less straining with addition of PEG GENITOURINARY: Continent. MUSCULOSKELETAL: No premorbid admitted complaints. Therapists note asymmetry in calf size, R>L by 2cm, no complaint of pain, tenderness or swelling, is right dominant. NEUROLOGICAL: Left-sided weakness and incoordination, possible history of focal seizure activity, none observed on unit. HEMATOLOGICAL: No prior history of bruising or significant problems. SKIN: Intact. PSYCHIATRIC: Unremarkable, apparently was some issue of behavioral change and sundowning at prior facility. Currently appears stable. All other review of systems found to be negative. OBJECTIVE: PHYSICAL EXAMINATION: VITAL SIGNS: Please see below. GENERAL: Pleasant and cooperative, athletic appearing gentleman appearing younger than his stated age. No acute distress. Alert and oriented times three. HEENT: PERRL. Extraocular movements intact. Clear conjunctiva. No adenopathy, thyromegaly or bruits. Full forward flexion, extension, bilateral bending and rotation Cervical spine for age. CARDIOVASCULAR: Regular rate and rhythm. No murmurs, rubs, or gallops. Recent placement of Loop monitor noted over left pectoral region. LUNGS: Clear to auscultation bilaterally. No wheezes. No rhonchi. ABDOMEN: Soft, scaphoid nontender, nondistended. Positive bowel sounds. Normal active bowel sounds. NEUROLOGICAL: Alert and oriented times three. Cranial nerves II through XII intact. Bilateral decreased coordination, improvement in rapid alternating movements bilateral hands, left worse than right, much less pass pointing on fi nger to nose testing left worse than right, bilateral involvement. EXTREMITIES: 5\5 strength right 4+/ 5 left biceps, triceps, wrist extensors, interossei. 5\5 strength right, 4+/ 5 left quadriceps, tibialis anterior, hamstrings. Full bilateral forward flexion of shoulders. No edema, no calf tenderness. SKIN: Intact FUNCTIONAL STATUS: Standby assistance for sit to stand, contact guard assistance bed to chair, poor dynamic standing and weight shifting with increase in balance noted, however, his inability 170 feet with contact guard assist. Reconsideration feasible rolling walker for improved safety and balance in the home environment, patient instruction for optimal motor planning underway. Patient continues to benefit from skilled PT to progress dynamic balance, safety awareness, evaluation for cardiac effects. GOALS: Resume complete safe independence in mobility, self-care, activities. LABORATORY DATA: Reviewed. Please see below. MICROBIOLOGY: Please see below. ASSESSMENT AND PLAN: Bifrontal subarachnoid hemorrhage. S/P recent syncopal episode, probable vasovagal reaction Possible amyloid angiopathy. Acute bilateral strokes. Suspected initial focal seizures impacting left upper extremity. Hypoattenuating left thyroid lesion. 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 He was admitted there 03/12/2020 with new-onset left upper extremity weakness and paresthesias. CT s can was noted for hyperdensity in the bifrontal lobes and right anterior parietal lobe at the local hospital and he was transferred to [facility] for further workup and treatment of subarachnoid hemorrhage without evidence of stenosis, AVM or aneurysm. Also noted was hypoattenuating lesion in the left thyroid, TSH WNL. Neurosurgery did not feel surgical intervention required. Repeat CT 03/15/2020 noted stable. An MRI demonstrated acute lacunar infarcts bilaterally. EEG N/V EEG monitoring did not show epileptic activity, however, intermittent weakness and clumsiness of the left hand led to suspicion for focal seizures and presumptive Depakote was begun. Aspirin low-dose begun, precluded from use of NSAIDs or anticoagulants. A cardiogram was unremarkable including LUCHO. Loop recorder placed for assessment of possible cardioembolic source. Thus far no cardiopulmonary symptoms or VS abnormalities , despite recent syncopal episode associated with straining at stool, overnight evaluation on Telemetry revealed no reported abnormalities. PLAN: 1. Rehab- PT/OT advance gait and ADls, strengthen/stretch/maintain ROM all 4 limbs, pain management with appropriate modalities and accommodation medications as indicated, monitor for cardiac symptoms and document. 2. Neuro- observe for evidence of seizure activity, precautions for left sided incoordination, balance and weakness issues, monitor for cognitive changes. 3. Cardiac-appears currently stable. [facility] cardiology will continue to monitor the loop monitor, and observe for adverse impact if any on increasing level of exercise intensity. Instructed patient to create a log which he can record, time, date, and any new symptoms or sensations. Patient also to keep a record of his therapy schedule, so it can be correlated with any findings on the loop monitor that were asymptomatic. 5. Endo-history of diabetes. HbA1c 5.7 demonstrating good DM level of baseline control, DC accuchecks to as needed 6. DVT ppx- MIGUEL A, no NSAIDS or anticoagulants s/p recent bleed. 7. Pain- Tylenol as indicated 8. Dispo- home with and daughter in interim then transition to [place]. TIME SPENT: Chart Review, examination and documentation 30 minutes. Allergies Coded Allergies: No Known Allergies (Verified Allergy, Unknown, 03/19/20) Vital Signs Vital Signs Date Time Temp Pulse Resp B/P (MAP) Pulse Ox O2 Delivery O2 Flow Rate FiO2 03/25/20 08:04 122/76 03/25/20 05:51 98.1 66 18 93 Room Air Laboratory Data Labs 24H Laboratory Tests 2 03/25/20 05:40: Bedside Glucose (Misc Panel) 129H Current Medications Current Medications Current Medications Medications (Trade) Dose Ordered Sig/Parveen Route PRN Reason Start Time Stop Time Status Last Admin Dose Admin Acetaminophen (Tylenol Tab) 650 mg Q4HP PRN PO MILD PAIN (PS 1-4) 03/19/20 16:00 Allopurinol (Zyloprim) 100 mg DAILY PO 03/20/20 09:00 03/25/20 08:02 Aspirin (Ecotrin) 81 mg DAILY PO 03/20/20 09:00 03/25/20 08:02 Divalproex Sodium (Depakote Er) 500 mg Q12H PO 03/19/20 21:00 03/21/20 09:25 DC 03/21/20 07:32 Divalproex Sodium (Depakote Er) 500 mg Q12H PO 03/21/20 09:25 03/25/20 08:02 Docusate Sodium (Colace) 100 mg BID PO 03/19/20 21:00 03/25/20 08:04 Glimepiride (Amaryl) 2 mg DAILY@0730 PO 03/20/20 07:30 03/25/20 08:04 Home Med (Med Rec Complete!) ASDIRECTED XX 03/19/20 16:30 03/19/20 16:23 DC Losartan Potassium (Cozaar) 100 mg DAILY PO 03/20/20 09:00 03/25/20 08:04 Metformin HCl (Glucophage Xr) 500 mg DAILY PO 03/20/20 09:00 03/25/20 08:02 Multivitamins (Theragram-M) 1 tab DAILY PO 03/20/20 09:00 03/25/20 08:04 Polyethylene Glycol (Miralax) 1 pkt DAILY PO 03/25/20 09:00 03/25/20 08:04 RADHA NICHOLS MD Mar 25, 2020 14:07
[2020-03-25 20:00] VITALS: BP 130/80
[2020-03-26 06:00] VITALS: BP 126/77
[2020-03-26] MEDS: DIVALPROEX 500MG *ER* TAB PO SCH ×2 (08:35→21:01)
[2020-03-26] MEDS: DOCUSATE SODIUM 100 MG CAP PO SCH ×2 (08:35→21:01)
[2020-03-26] MEDS: allopurinoL 100 MG TAB PO SCH (08:35)
[2020-03-26] MEDS: ASPIRIN 81 MG ENTERIC TAB PO SCH (08:36)
[2020-03-26] MEDS: MULTIVITAMINS/MINERALS THERAP 1 TAB PO SCH (08:36)
[2020-03-26] MEDS: GLIMEPIRIDE 2 MG TAB PO SCH (08:36)
[2020-03-26] MEDS: metFORMIN XR 500MG TAB *GLUCOPHAGE XR PO SCH (08:36)
[2020-03-26] MEDS: LOSARTAN 50MG TABLET PO SCH (08:36)
[2020-03-26] MEDS: MIRALAX *UNIT DOSE* 17GM PACKET PO SCH (08:37)
--- NOTE | 2020-03-26 11:50 | IPNPDOC ---
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 No significant history of ca rdiopulmonary or other medical conditions. Had a bit of excitement over the weekend with overnight stay on telemetry after probable vasovagal/syncopal episode, no reported abnormalities on [place] remote monitoring, returned to floor and participated well in all therapies since, no new complaints. Balance coordination and instability remaining him at risk for fall been detected during therapy interventions, ongoing, patient education and institution of use of a walker to be helping. REVIEW OF SYSTEMS: GASTROINTESTINAL: Denies constipation/diarrhea, regular BM, less straining with addition of PEG GENITOURINARY: Continent. MUSCULOSKELETAL: No premorbid admitted complaints. Therapists noted asymmetry in calf size, R>L by 2cm, no complaint of pain, tenderness or swelling, is right dominant. NEUROLOGICAL: Left-sided weakness and incoordination, possible history of focal seizure activity, none observed on unit. HEMATOLOGICAL: No prior history of bruising or significant problems. SKIN: Intact. PSYCHIATRIC: Unremarkable, apparently was some issue of behavioral change and sundowning at prior facility. Currently appears stable. All other review of systems found to be negative. OBJECTIVE: PHYSICAL EXAMINATION: VITAL SIGNS: Please see below. GENERAL: Pleasant and cooperative, athletic appearing gentleman appearing younger than his stated age. No acute distress. Alert and oriented times three. HEENT: PERRL. Extraocular movements intact. Clear conjunctiva. No adenopathy, thyromegaly or bruits. Full forward flexion, extension, bilateral bending and rotation Cervical spine for age. CARDIOVASCULAR: Regular rate and rhythm. No murmurs, rubs, or gallops. Recent placement of Loop monitor over left pectoral region. LUNGS: Clear to auscultation bilaterally. No wheezes. No rhonchi. ABDOMEN: Soft, scaphoid nontender, nondistended. Positive bowel sounds. Normal active bowel sounds. NEUROLOGICAL: Alert and oriented times three. Cranial nerves II through XII intact. Bilateral decreased coordination, improvement in rapid alternating movements bilateral hands, left worse than right, much less pass pointing on finger to nose testing left worse than right, bilateral involvement. EXTREMITIES: 5\5 strength right 4+/ 5 left biceps, triceps, wrist extensors, interossei. 5\5 strength right, 4+/ 5 left quadriceps, tibialis anterior, hamstrings. Full bilateral forward flexion of shoulders. No edema, no calf tenderness. SKIN: Intact FUNCTIONAL STATUS: Standby assistance for sit to stand, contact guard assistance bed to chair, poor dynamic standing and weight shifting with increase in balance noted, however, increasing safety and ambulation with use of a rolling walker, which will translate into improved safety and balance in the home environment, patient instruction for optimal motor planning underway. Patient continues to benefit from skilled PT to progress dynamic balance, safety awareness, with ongoing monitoring for cardiac effects. GOALS: Resume complete safe independence in mobility, self-care, activities. LABORATORY DATA: Reviewed. Please see below. MICROBIOLOGY: Please see below. ASSESSMENT AND PLAN: Bifrontal subarachnoid hemorrhage. S/P recent syncopal episode, probable vasovagal reaction Possible amyloid angiopathy. Acute bilateral strokes. Suspected initial focal seizures impacting left upper extremity. Hypoattenuating left thyroid lesion. 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 He was admitted there 03/12/2020 with new-onset left upper extremity weakness and paresthesias. CT scan was noted for hyperdensity in the bifrontal lobes and right anterior parietal lobe at the local hospital and he was transferred to [facility] for further workup and treatment of subarachnoid hemorrhage without evidence of stenosis, AVM or aneurysm. Also noted was hypoattenuating lesion in the left thyroid, TSH WNL. Neurosurgery did not feel surgical intervention required. Repeat CT 03/15/2020 noted stable. An MRI demonstrated acute lacunar infarcts bilaterally. EEG N/V EEG monitoring did not show epileptic activity, however, intermittent weakness and clumsiness of the left hand led to suspicion for focal seizures and presumptive Depakote was begun. Aspirin low-dose begun, precluded from use of NSAIDs or anticoagulants. A cardiogram was unremarkable including LUCHO. Loop recorder placed for assessment of possible cardioembolic source. Thus far no VS abnormalities , despite recent syncopal episode associated with straining at stool, overnight evaluation on Telemetry revealed no reported abnormalities. PLAN: 1. Rehab- PT/OT advance gait and ADls, strengthen/stretch/maintain ROM all 4 limbs, pain management with appropriate modalities and accommodation medications as indicated, monitor for cardiac symptoms and document. 2. Neuro- observe for evidence of seizure activity, precautions for left sided incoordination, balance and weakness issues, monitor for cognitive changes. 3. Cardiac-appears currently stable. [facility] cardiology will continue to monitor the loop monitor, and observe for adverse impact if any on increasing level of exercise intensity. Instructed patient to create a log which he can record, time, date, and any new symptoms or sensations. Patient also to keep a record of his therapy schedule, so it can be correlated with any findings on the loop monitor that were asymptomatic. 5. Endo-history of diabetes. HbA1c 5.7 demonstrating good DM level of baseline control, DC accuchecks to as needed 6. DVT ppx- MIGUEL A, no NSAIDS or anticoagulants s/p recent bleed. 7. Pain- Tylenol as indicated 8. Dispo- home with and daughter in interim then transition to [place]. TIME SPENT: Chart Review, examination and documentation 30 minutes. TIME SPENT: Chart Review, examination and documentation minutes. Allergies Coded Allergies: No Known Allergies (Verified Allergy, Unknown, 03/19/20) Vital Signs Vital Signs Date Time Temp Pulse Resp B/P (MAP) Pulse Ox O2 Delivery O2 Flow Rate FiO2 03/26/20 08:36 126/77 03/26/20 06:00 98.7 66 16 95 Room Air Current Medications Current Medications Current Medications Medications (Trade) Dose Ordered Sig/Parveen Route PRN Reason Start Time Stop Time Status Last Admin Dose Admin Acetaminophen (Tylenol Tab) 650 mg Q4HP PRN PO MILD PAIN (PS 1-4) 03/19/20 16:00 Allopurinol (Zyloprim) 100 mg DAILY PO 03/20/20 09:00 03/26/20 08:35 Aspirin (Ecotrin) 81 mg DAILY PO 03/20/20 09:00 03/26/20 08:36 Divalproex Sodium (Depakote Er) 500 mg Q12H PO 03/19/20 21:00 03/21/20 09:25 DC 03/21/20 07:32 Divalproex Sodium (Depakote Er) 500 mg Q12H PO 03/21/20 09:25 03/26/20 08:35 Docusate Sodium (Colace) 100 mg BID PO 03/19/20 21:00 03/26/20 08:35 Glimepiride (Amaryl) 2 mg DAILY@0730 PO 03/20/20 07:30 03/26/20 08:36 Home Med (Med Rec Complete!) ASDIRECTED XX 03/19/20 16:30 03/19/20 16:23 DC Losartan Potassium (Cozaar) 100 mg DAILY PO 03/20/20 09:00 03/26/20 08:36 Metformin HCl (Glucophage Xr) 500 mg DAILY PO 03/20/20 09:00 03/26/20 08:36 Multivitamins (Theragram-M) 1 tab DAILY PO 03/20/20 09:00 03/26/20 08:36 Polyethylene Glycol (Miralax) 1 pkt DAILY PO 03/25/20 09:00 03/25/20 08:04 RADHA NICHOLS MD Mar 26, 2020 11:50
[2020-03-26 14:00] VITALS: BP 119/69
[2020-03-26 20:00] VITALS: BP 143/78
[2020-03-27 06:00] VITALS: BP 136/71
[2020-03-27] MEDS: GLIMEPIRIDE 2 MG TAB PO SCH (07:49)
[2020-03-27] MEDS: LOSARTAN 50MG TABLET PO SCH (07:49)
[2020-03-27] MEDS: ASPIRIN 81 MG ENTERIC TAB PO SCH (07:49)
[2020-03-27] MEDS: allopurinoL 100 MG TAB PO SCH (07:49)
[2020-03-27] MEDS: MULTIVITAMINS/MINERALS THERAP 1 TAB PO SCH (07:49)
[2020-03-27] MEDS: MIRALAX *UNIT DOSE* 17GM PACKET PO SCH (07:50)
[2020-03-27] MEDS: DOCUSATE SODIUM 100 MG CAP PO SCH ×2 (07:50→19:55)
[2020-03-27] MEDS: metFORMIN XR 500MG TAB *GLUCOPHAGE XR PO SCH (07:50)
[2020-03-27] MEDS: DIVALPROEX 500MG *ER* TAB PO SCH ×2 (07:50→19:55)
--- NOTE | 2020-03-27 10:54 | IPNPDOC ---
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 No significant history of cardiopulmonary or other medical conditions. Had a bit of excitement over the weekend with overnight stay on telemetry after probable vasovagal/syncopal episode, no reported abnormalities on [place] remote monitoring, returned to floor and participated well in all therapies since, no new complaints. Balance coordination and instability continue to place him at risk for falls, recommendation is for use of a walker upon discharge for safety in ambulation. REVIEW OF SYSTEMS: GASTROINTESTINAL: Denies constipation/diarrhea, regular BM, less straining with addition of miralax GENITOURINARY: Continent. MUSCULOSKELETAL: No premorbid admitted complaints. NEUROLOGICAL: Left-sided weakness and incoordination, possible history of focal seizure activity, none observed on unit. HEMATOLOGICAL: No prior history of bruising or significant problems. SKIN: Intact. PSYCHIATRIC: Unremarkable, apparently was some issue of behavioral change and sundowning at prior facility. Currently appears stable. All other review of systems found to be negative. OBJECTIVE: PHYSICAL EXAMINATION: VITAL SIGNS: Please see below. GENERAL: Pleasant and cooperative, athletic appearing gentleman appearing younger than his stated age. No acute distress. Alert and oriented times three. HEENT: PERRL. Extraocular movements intact. Clear conjunctiva. Healing small abrasion frontal area. CARDIOVASCULAR: Regular rate and rhythm. No murmurs, rubs, or gallops. Recent placement of Loop monitor over left pectoral region. LUNGS: Clear to auscultation bilaterally. No wheezes. No rhonchi. ABDOMEN: Soft, scaphoid nontender, nondistended. Positive bowel sounds. Normal active bowel sounds. NEUROLOGICAL: Alert and oriented times three. Cranial nerves II through XII intact. Bilateral decreased coordination, improvement in rapid alternating movements bilateral hands, left worse than right, much less pass pointing on finger to nose testing left worse than right, bilateral involvement. EXTREMITIES: 5\5 strength right 4+/ 5 left biceps, triceps, wrist extensors, interossei. 5\5 strength right, 4+/ 5 left quadriceps, tibialis anterior, hamstrings. Full bilateral forward flexion of shoulders. No edema, no calf tenderness. SKIN: Intact FUNCTIONAL STATUS: Standby assistance for sit to stand, contact guard assistance bed to chair, poor dynamic standing and weight shifting with increase in balance noted, however, increasing safety and ambulation with use of a rolling walker, which will translate into improved safety and balance in the home environment, patient instruction for optimal motor planning underway. Continue safety awareness, with ongoing monitoring for cardiac effects. GOALS: Resume complete safe independence in mobility, self-care, activities. LABORATORY DATA: Reviewed. Please see below. MICROBIOLOGY: Please see below. ASSESSMENT AND PLAN: Bifrontal subarachnoid hemorrhage. S/P recent syncopal episode, probable vasovagal reaction Possible amyloid angiopathy. Acute bilateral strokes. Suspected initial focal seizures impacting left upper extremity. Hypoattenuating left thyroid lesion. 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 He was admitted there 03/12/2020 with new-onset left upper extremity weakness and paresthesias. CT scan was noted for hyperdensity in the bifrontal lobes and right anterior parietal lobe at the local hospital and he was transferred to [facility] for further workup and treatment of subarachnoid hemorrhage without evidence of stenosis, AVM or aneurysm. Also noted was hypoattenuating lesion in the left thyroid, TSH WNL. Neurosurgery did not feel surgical intervention required. Repeat CT 03/15/2020 noted stable. An MRI demonstrated acute lacunar infarcts bilaterally. EEG N/V EEG monitoring did not show epileptic activity, however, intermittent weakness and clumsiness of the left hand led to suspicion for focal seizures and presumptive Depakote was begun. Aspirin low-dose begun, precluded from use of NSAIDs or anticoagulants. A cardiogram was unremarkable including LUCHO. Loop recorder placed for assessment of possible cardioembolic so urce. Thus far no VS abnormalities , despite recent syncopal episode associated with straining at stool, overnight evaluation on Telemetry revealed no reported abnormalities, continues to progress in strength and coordination without adverse events in rehab program. PLAN: 1. Rehab- PT/OT advance gait and ADls, strengthen/stretch/maintain ROM all 4 limbs, pain management with appropriate modalities and accommodation medications as indicated, monitor for cardiac symptoms and document. 2. Neuro- observe for evidence of seizure activity, precautions for left sided incoordination, balance and weakness issues, monitor for cognitive changes. 3. Cardiac-appears currently stable. [facility] cardiology will continue to monitor the loop monitor, and observe for adverse impact if any on increasing level of exercise intensity. Instructed patient to create a log which he can record, time, date, and any new symptoms or sensations. Patient also to keep a record of his therapy schedule, so it can be correlated with any findings on the loop monitor that were asymptomatic. Will need follow up with PMD and Cardiology on discharge. 5. Endo-history of diabetes. HbA1c 5.7 demonstrating good DM level of baseline control, DC accuchecks to as needed 6. DVT ppx- MIGUEL A, no NSAIDS or anticoagulants s/p recent bleed. 7. Pain- Tylenol as indicated 8. Dispo- home with and daughter in interim then transition to [place]. TIME SPENT: Chart Review, examination and documentation 30 minutes. Allergies Coded Allergies: No Known Allergies (Verified Allergy, Unknown, 03/19/20) Vital Signs Vital Signs Date Time Temp Pulse Resp B/P (MAP) Pulse Ox O2 Delivery O2 Flow Rate FiO2 03/27/20 07:49 136/71 03/27/20 06:00 98.7 57 18 95 Room Air Current Medications Current Medications Current Medications Medications (Trade) Dose Ordered Sig/Parveen Route PRN Reason Start Time Stop Time Status Last Admin Dose Admin Acetaminophen (Tylenol Tab) 650 mg Q4HP PRN PO MILD PAIN (PS 1-4) 03/19/20 16:00 Allopurinol (Zyloprim) 100 mg DAILY PO 03/20/20 09:00 03/27/20 07:49 Aspirin (Ecotrin) 81 mg DAILY PO 03/20/20 09:00 03/27/20 07:49 Divalproex Sodium (Depakote Er) 500 mg Q12H PO 03/19/20 21:00 03/21/20 09:25 DC 03/21/20 07:32 Divalproex Sodium (Depakote Er) 500 mg Q12H PO 03/21/20 09:25 03/27/20 07:50 Docusate Sodium (Colace) 100 mg BID PO 03/19/20 21:00 03/26/20 21:01 Glimepiride (Amaryl) 2 mg DAILY@0730 PO 03/20/20 07:30 03/27/20 07:49 Home Med (Med Rec Complete!) ASDIRECTED XX 03/19/20 16:30 03/19/20 16:23 DC Losartan Potassium (Cozaar) 100 mg DAILY PO 03/20/20 09:00 03/27/20 07:49 Metformin HCl (Glucophage Xr) 500 mg DAILY PO 03/20/20 09:00 03/27/20 07:50 Multivitamins (Theragram-M) 1 tab DAILY PO 03/20/20 09:00 03/27/20 07:49 Polyethylene Glycol (Miralax) 1 pkt DAILY PO 03/25/20 09:00 03/25/20 08:04 RADHA NICHOLS MD Mar 27, 2020 10:54
[2020-03-27 14:00] VITALS: BP 100/55
[2020-03-27 20:00] VITALS: BP 116/55
[2020-03-28 05:55] VITALS: BP 135/64
[2020-03-28] MEDS ORDERED: PEG1POW PO (08:26)
[2020-03-28 08:52] VITALS: BP 121/59
[2020-03-28] MEDS: ASPIRIN 81 MG ENTERIC TAB PO SCH (08:54)
--- NOTE | 2020-03-28 08:54 | DS.PDOC ---
PM&R Discharge Summary [employer] Of [employer]ights [employer] Measures Discharge Note DATE OF ADMISSION: Mar 03, 2020 at 18:30 DATE OF DISCHARGE: 03.28.2020 DISCHARGE DIAGNOSES: Bifrontal subarachnoid hemorrhage. S/P recent syncopal episode, probable vasovagal reaction Possible amyloid angiopathy. Acute bilateral strokes. Suspected initial focal seizures impacting left upper extremity. Hypoattenuating left thyroid lesion. 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 During acute hospitalization, possible jerking (tone?) movements of left upper extremity noted, neg EEG, VEEG, placed empirically on Depakote for possible siezure disorder. A loop monitor was also placed to assess for possible cardioembolic phenomenon, monitored by [facility] cardiology team. No significant previous history of cardiopulmonary or other medical conditions. Rehabilitation unit course showed good progress overall despite an overnight stay on telemetry after probable vasovagal/syncopal episode, fell off toilet associated with straining during BM, no reported abnormalities on [place] remote monitoring, he returned to floor and participated well in all therapies since, no new complaints. Balance coordination and instability continue to place him at risk for falls, recommendation is for use of a walker upon discharge for safety in ambulation. PHYSICAL EXAMINATION: GENERAL: Pleasant and cooperative, athletic appearing gentleman appearing younger than his stated age. No acute distress. Alert and oriented times three. HEENT: PERRL. Extraocular movements intact. Clear conjunctiva. Healing nontender small abrasion frontal area, no tenderness mastoid regions or cervical spine. CARDIOVASCULAR: Regular rate and rhythm. No murmurs, rubs, or gallops. Recent placement of Loop monitor over left pectoral region. LUNGS: Clear to auscultation bilaterally. No wheezes. No rhonchi. ABDOMEN: Soft, scaphoid nontender, nondistended. Positive bowel sounds. Normal active bowel sounds. NEUROLOGICAL: Alert and oriented times three. Cranial nerves II through XII intact. Bilateral decreased coordination, improvement in rapid alternating movements bilateral hands, left worse than right, much less pass pointing on finger to nose testing left worse than right, bilateral involvement. EXTREMITIES: 5\5 strength right 4+/ 5 left biceps, triceps, wrist extensors, interossei. 5\5 strength right, 4+/ 5 left quadriceps, tibialis anterior, hamstrings. Full bilateral forward flexion of shoulders. No edema, no calf tende rness. SKIN: Intact FUNCTIONAL STATUS AT DISCHARGE: Standby assistance for sit to stand, contact guard assistance bed to chair, poor dynamic standing and weight shifting with increase in balance noted, however, increasing safety and ambulation with use of a rolling walker, which will translate into improved safety and balance in the home environment, patient instruction for optimal motor planning underway. Continue safety awareness, with ongoing monitoring for cardiac effects. OTHER TESTS: LABORATORY DATA: Please see below. ALLERGIES: See below. MEDICATIONS: See Below. DISCHARGE DISPOSITION: Discharge to interim facility then travelling with daughter and to [place], will need follow up with a -PMD regarding DM (very well controlled on current regimen Hb A1C 5.7), HTN-may need downward adjustment in meds with hypotensive episodes on griffiths, suggest home BP monitoring and adjust dosing to maintain SBP>110 < 140, follow up thyroid nodule -[employer] and [facility] regarding Loop monitor management plan -Neurology regarding CVA, SAH and possible siezures possible amyloid angiopathy and follow up evaluation and length of time and need to continue Depakote or other medications -Home health care at final destination. Vital Signs/I&O Vital Sign - Last 24 Hours 03/27/20 03/27/20 03/28/20 03/28/20 14:00 20:00 05:55 08:52 Temp 98.2 98.2 99.0 98.5 Pulse 83 72 65 79 Resp 18 19 18 16 B/P (MAP) 100/55 (70) 116/55 (75) 135/64 (87) 121/59 (79) Pulse Ox 96 95 93 94 O2 Delivery Room Air Room Air Room Air Room Air I&O- Last 24 Hours up to 6 AM0 03/28/20 05:59 Intake Total 1260 ml Output Total 0 ml Balance 1260 ml Medications Medications Current Medications Medications (Trade) Dose Ordered Sig/Parveen Route PRN Reason Start Time Stop Time Status Last Admin Dose Admin Acetaminophen (Tylenol Tab) 650 mg Q4HP PRN PO MILD PAIN (PS 1-4) 03/19/20 16:00 Allopurinol (Zyloprim) 100 mg DAILY PO 10/22/20 09:00 03/27/20 07:49 Aspirin (Ecotrin) 81 mg DAILY PO 03/20/20 09:00 03/27/20 07:49 Divalproex Sodium (Depakote Er) 500 mg Q12H PO 03/19/20 21:00 03/21/20 09:25 DC 03/21/20 07:32 Divalproex Sodium (Depakote Er) 500 mg Q12H PO 03/21/20 09:25 03/27/20 19:55 Docusate Sodium (Colace) 100 mg BID PO 03/19/20 21:00 03/27/20 19:55 Glimepiride (Amaryl) 2 mg DAILY@0730 PO 03/20/20 07:30 03/27/20 07:49 Home Med (Med Rec Complete!) ASDIRECTED XX 03/19/20 16:30 03/19/20 16:23 DC Losartan Potassium (Cozaar) 100 mg DAILY PO 03/20/20 09:00 03/27/20 07:49 Metformin HCl (Glucophage Xr) 500 mg DAILY PO 03/20/20 09:00 03/27/20 07:50 Multivitamins (Theragram-M) 1 tab DAILY PO 03/20/20 09:00 03/27/20 07:49 Polyethylene Glycol (Miralax) 1 pkt DAILY PO 03/25/20 09:00 03/25/20 08:04 Scheduled Allopurinol (Allopurinol) 100 Mg Tablet, 100 MG PO QHS, (Reported) Aspirin (Aspirin EC) 81 Mg Tablet.dr, 81 MG PO DAILY, (Reported) Divalproex Sodium (Depakote) 500 Mg Tablet.dr, 500 MG PO BID, (Reported) Docusate Sodium (Colace) 100 Mg Capsule, 100 MG PO BID, (Reported) Glimepiride (Glimepiride) 2 Mg Tablet, 2 MG PO DAILY, (Reported) Losartan Potassium (Losartan Potassium) 100 Mg Tablet, 100 MG PO QPM, (Reported) Metformin HCl (Metformin HCl ER) 500 Mg Tab.er.24h, 500 MG PO QAM, (Reported) Multivitamins (Thera M Plus Tablet) 1 Each Tablet, 1 TAB PO DAILY, (Reported) Polyethylene Glycol 3350 (Polyethylene Glycol 3350) 17 Gm Powd.pack, 1 PKT PO DAILY Scheduled PRN Acetaminophen (Acetaminophen) 325 Mg Tablet, 650 MG PO Q6H PRN for PAIN, (Reported) Allergies Coded Allergies: No Known Allergies (Verified Allergy, Unknown, 03/19/20) RADHA NICHOLS MD Mar 28, 2020 08:54
[2020-03-28] MEDS: GLIMEPIRIDE 2 MG TAB PO SCH (08:55)
[2020-03-28 08:56] VITALS: BP 121/59
[2020-03-28] MEDS: DOCUSATE SODIUM 100 MG CAP PO SCH (08:56)
[2020-03-28] MEDS: MIRALAX *UNIT DOSE* 17GM PACKET PO SCH (08:56)
[2020-03-28] MEDS: MULTIVITAMINS/MINERALS THERAP 1 TAB PO SCH (08:56)
[2020-03-28] MEDS: allopurinoL 100 MG TAB PO SCH (08:56)
[2020-03-28] MEDS: metFORMIN XR 500MG TAB *GLUCOPHAGE XR PO SCH (08:56)
[2020-03-28] MEDS: LOSARTAN 50MG TABLET PO SCH (08:56)
[2020-03-28] MEDS: DIVALPROEX 500MG *ER* TAB PO SCH (08:57)
== END 2020-03-28 11:55 | disposition home or self-care (01) | DRG 57 ==
LOC: M PM&R 15:23
PROVIDERS: ADMIT Physical Medicine & Rehabilitation; ATTEND Physical Medicine & Rehabilitation
DX: I69.252 Hemiplegia and hemiparesis following other nontraumatic intracranial hemorrhage affecting left dominant side (principal); E85.4 Organ-limited amyloidosis; G40.109 Localization-related (focal) (partial) symptomatic epilepsy and epileptic syndromes with simple partial seizures, not intractable, without status epilepticus; I68.0 Cerebral amyloid angiopathy; R55 Syncope and collapse; I10 Essential (primary) hypertension; E11.22 Type 2 diabetes mellitus with diabetic chronic kidney disease; N18.30 Chronic kidney disease, stage 3 unspecified; E07.9 Disorder of thyroid, unspecified; R26.89 Other abnormalities of gait and mobility; Z79.82 Long term (current) use of aspirin; Z79.84 Long term (current) use of oral hypoglycemic drugs; Z79.899 Other long term (current) drug therapy

== ENCOUNTER 2020-03-23 20:32 | Observation (INO) | payer MEDICARE ==
[~2020-03-23] VITALS: Ht 185.4 cm; Wt 80.2 kg
[~2020-03-23 20:32] MED LIST: ACET1TAB55 PO; ALLO100T PO; ASPI81TA26 PO; COLA100C5 PO; DEPA1TAB3 PO; ENOX40IN3 SC; GLIM2TAB4 PO; LOSA100T50 PO; METF-838 PO; VITMTA PO
--- NOTE | 2020-03-23 20:36 | HPEPDOC ---
[facility] Medical History & Physical Date of Admission Mar 23, 2020 Date of Service: Mar 23, 2020 Attending Physician: HETAL GONZALES MD History and Physical TIME OF SERVICE: 7:55 PM CHIEF COMPLAINT: Fall HISTORY OF PRESENT ILLNESS: This 79-year-old male was admitted to [facility] on March 19 for rehabilitation after being diagnosed with acute bilateral CVAs, bifrontal subarachnoid hemorrhages secondary to amyloid angiopathy and possible focal seizures at [facility]. This evening was called by the patient's RN to evaluate this 79-year-old male after he had an unwitnessed fall while he was in the bathroom. The patient denies having any chest pain, shortness breath, dizziness, nausea, vomiting, or diarrhea before or after the fall. He reports eating all of his food during the day. He was unable to give a lot of details about the event and admits to having has lapses in his memory surrounding the fall. As a result of the fall, he developed a small laceration on the left side of his head that was bleeding when the RN found him. REVIEW OF SYSTEMS: 12 point review of systems negative except as listed in HPI PAST MEDICAL/ SURGICAL HISTORY: Chronic HTN NIDDM CKD III Amyloid angiopathy complicated by bifrontal subarachnoid hemorrhages Subacute bilateral CVAs Loop recorder implantation post CVAs to r/o cardioembolic event Possible focal seizures impacting left upper extremity Hypoattenuating left thyroid lesion cause TBD SOCIAL HISTORY: No tobacco alcohol or recreational drug use FAMILY HISTORY: n/a ALLERGIES: Please see below. HOME MEDICATIONS: Please see below. PHYSICAL EXAMINATION: HR 105 GEN: slim build/ well developed/ NAD INTEGUMENT: not flushed/ not jaundice / he has a small 1.5 cm long laceration at the left posterior part of his scalp HEENT: lips acyanotic /mucus membranes moist and pink / sclera anicteric CVS: RRR/NMRG / radial pulses intact / no lower extremity edema LUNGS: able to speak full sentences without stopping to take a breath / no coughing / lungs are clear to auscultation bilaterally on room air ABDOMEN: Contour (flat) MSK/EXTREMITIES: range of motion intact in all 4 extremities NEURO: CN 2-12 are grossly intact / speech is not dysarthric / strength is 5/5 except LUE where strength is 4/5 PSYCH: alert and oriented to person place and time/ able to understand and follow all commands LABORATORY DATA: serum glucose 121 03/23/20 21:24 ASSESSMENT: is an 79-year-old with a history of HTN, NIDDM, CKD 3, malignant ang iopathy comp located by subarachnoid hemorrhages, subacute bilateral CVAs, and possible focal seizures who was admitted to ARU for rehabilitation; this evening he had an unwitnessed syncopal event and will be transferred to PCU for observation. PLAN: 1. Syncope Cause TBD Trop, K, Mg wnl Plan: admit to PCU for frequent neurochecks / fall precautions/ telemetry / f/u orthostats / f/u CT head & EKG & add on prolactin to screen for seizure / day time team may consider Cardio consult in the AM to review loop recorder events / 2. Scalp laceration Plan: bacitracin ointment 3. Sub-acute bilateral CVAs Plan: ASA, add statin and escitalopram (antidepressants post CVA have been shown to improve functional recovery and reduce dependency in individuals both with and without post stroke CVA) / f/u w Neuro at [facility] in 3 months 4. Amyloid angiopathy complicated by bifrontal subarachnoid hemorrhages Plan: c/w ASA 5. Possible Seizure Disorder Plan: divalproex / check valproic acid levels 6. NIDDM A1C 5.7% His target A1C for his age is 7.5 to 8% Plan: diabetic diet / f/u accuchecks & A1C / hypoglycemia protocol / sliding scale insulin / hold oral anti-glycemics / f/u w PCP to reduce polypharmacy 7. Chronic HTN Plan: losartan 8. Thyroid Lesion Plan: f/u w PCP for US ect on an out pt basis DVT PROPHYLAXIS: lovenox DISPOSITION: home after more than 2 midnight's stay Home Medications Scheduled Allopurinol (Allopurinol) 100 Mg Tablet, 100 MG PO QHS Aspirin (Aspirin EC) 81 Mg Tablet., 81 MG PO DAILY Divalproex Sodium (Depakote) 500 Mg Tablet., 500 MG PO BID Docusate Sodium (Colace) 100 Mg Capsule, 100 MG PO BID Enoxaparin Sodium (Enoxaparin Sodium) 40 Mg/0.4 Ml Syringe, 40 MG SC DAILY RECEIVED AT [facility], FINISH DATE 04/16/20 Glimepiride (Glimepiride) 2 Mg Tablet, 2 MG PO DAILY Losartan Potassium (Losartan Potassium) 100 Mg Tablet, 100 MG PO QPM Metformin HCl (Metformin HCl ER) 500 Mg Tab.er.24h, 500 MG PO QAM Multivitamins (Thera M Plus Tablet) 1 Each Tablet, 1 TAB PO DAILY Scheduled PRN Acetaminophen (Acetaminophen) 325 Mg Tablet, 650 MG PO Q6H PRN for PAIN Allergies Coded Allergies: No Known Allergies (Verified Allergy, Unknown, 03/19/20) A-FIB/CHADSVASC A-FIB History Current/History of A-Fib/PAF?: No Current PO Anticoag Therapy: No HETAL GONZALES MD Mar 23, 2020 20:36
[2020-03-23] MEDS ORDERED: MOM 30ML SUSPENSION UDC PO PRN (20:45)
[2020-03-23] MEDS ORDERED: MAALOX 30 ML SUSP *UDC PO PRN (20:45)
[2020-03-23] MEDS ORDERED: HumaLOG INSULIN (NovoLOG) PER UNIT SC SCH (21:00)
[2020-03-23] MEDS ORDERED: LOSARTAN 50MG TABLET PO SCH (21:00)
[2020-03-23] MEDS ORDERED: ATORVASTATIN 10 MG TAB PO SCH (21:00)
[2020-03-23] MEDS ORDERED: allopurinoL 100 MG TAB PO SCH (21:00)
[2020-03-23 21:30] VITALS: BP 125/68
[2020-03-23 21:30] LABS: HEMATOCRIT 45.5 % (42.0-52.0); HEMOGLOBIN 14.3 g/dl (13.5-17.5); MEAN CORPUSCULAR HGB CONC 31.4 g/dl (32.0-36.5); MEAN CORPUSCULAR VOLUME 98.5 fl (80.0-96.0); PLATELET COUNT, AUTOMATED 285 10^3/uL (150-450); RED BLOOD COUNT 4.62 10^6/uL (4.30-6.10); WHITE BLOOD COUNT 12.7 10^3/uL (4.0-10.0)
[2020-03-23 21:53] LABS: BLOOD UREA NITROGEN 24 MG/DL (7-18); CALCIUM LEVEL 8.8 MG/DL (8.8-10.2); CARBON DIOXIDE LEVEL 22 MEQ/L (21-32); CHLORIDE LEVEL 108 MEQ/L (98-107); CREATININE FOR GFR 1.16 MG/DL (0.70-1.30); GLOMERULAR FILTRATION RATE > 60.0 (>35); GLUCOSE, FASTING 117 MG/DL (70-100); POTASSIUM SERUM 4.3 MEQ/L (3.5-5.1); SODIUM LEVEL 138 MEQ/L (136-145)
[2020-03-23 22:03] LABS: MAGNESIUM LEVEL 1.9 MG/DL (1.8-2.4); PHOSPHORUS LEVEL 3.6 MG/DL (2.5-4.9); TROPONIN I < 0.02 NG/ML (< 0.10)
[2020-03-23] MEDS ORDERED: GLUCOSE 4GM CHEW TABLET PO PRN (22:15)
[2020-03-23] MEDS ORDERED: ESCITALOPRAM OXALATE 5MG TABLET (LEXAPRO) PO SCH (22:15)
[2020-03-23] MEDS ORDERED: DEXTROSE 50% 50 ML SYRINGE IV PRN (22:15)
[2020-03-23] MEDS ORDERED: GLUCAGON INJ 1MG VIAL SC PRN (22:15)
--- NOTE | 2020-03-23 22:45 | REPVR ---
PROCEDURE INFORMATION: Exam: CT Head Without Contrast Exam date and time: 03/23/2020 10:20 PM Age: 79 years old Clinical indication: Syncope and collapse TECHNIQUE: Imaging protocol: Computed tomography of the head without contrast. Radiation optimization: All CT scans at this facility use at least one of these dose optimization techniques: automated exposure control; mA and/or kV adjustment per patient size (includes targeted exams where dose is matched to clinical indication); or iterative reconstruction. COMPARISON: No relevant prior studies available. FINDINGS: Brain: Scattered acute subarachnoid hemorrhage over the left frontal, parietal, and occipital lobes. Trace subarachnoid hemorrhage along the medial right frontal lobe. Age-indeterminate low attenuation ischemic changes within the right frontal, parietal, and periventricular white matter. Cerebral ventricles: No ventriculomegaly. Bones/joints: Unremarkable. No acute fracture. Paranasal sinuses: Visualized sinuses are unremarkable. No fluid levels. Mastoid air cells: Visualized mastoid air cells are well aerated. Soft tissues: Unremarkable. IMPRESSION: 1. Scattered acute subarachnoid hemorrhage over the left frontal, parietal, and occipital lobes. 2. Trace subarachnoid hemorrhage along the medial right frontal lobe. 3. Recent appearing low attenuation ischemic changes within the right frontal, parietal, and periventricular white matter. Additionally, there is a questionable tiny hyperdense peripheral right MCA branch. 4. Additional information provided by the physician on critical results report describes similar findings on a recent study at outside facility that was not made available suggesting this may be similar or unchanged from the recent hospitalization. THIS REPORT CONTAINS FINDINGS THAT MAY BE CRITICAL TO PATIENT CARE. The study was personally discussed on the telephone with care provider Dr. English on 03/23/2020 10:45 PM EDT. The results were understood and acknowledged. Electronically signed by: Selvin Wong On 03/23/2020 22:46:00 PM
[2020-03-23 22:49] LABS: VALPROIC ACID (DEPAKOTE) 63.1 UG/ML (50.0-100.0)
[2020-03-24] VITALS: BP 111/66
[2020-03-24 00:45] VITALS: BP 128/86
[2020-03-24 03:08] LABS: HEMATOCRIT 44.9 % (42.0-52.0); HEMOGLOBIN 14.2 g/dl (13.5-17.5); MEAN CORPUSCULAR HEMOGLOBIN 30.9 pg (27.0-33.0); MEAN CORPUSCULAR HGB CONC 31.6 g/dl (32.0-36.5); MEAN CORPUSCULAR VOLUME 97.6 fl (80.0-96.0); PLATELET COUNT, AUTOMATED 293 10^3/uL (150-450); WHITE BLOOD COUNT 12.4 10^3/uL (4.0-10.0)
[2020-03-24 03:40] LABS: BLOOD UREA NITROGEN 22 MG/DL (7-18); CALCIUM LEVEL 8.3 MG/DL (8.8-10.2); CARBON DIOXIDE LEVEL 23 MEQ/L (21-32); CHLORIDE LEVEL 110 MEQ/L (98-107); CREATININE FOR GFR 1.11 MG/DL (0.70-1.30); GLOMERULAR FILTRATION RATE > 60.0 (>35); GLUCOSE, FASTING 111 MG/DL (70-100); POTASSIUM SERUM 4.5 MEQ/L (3.5-5.1); SODIUM LEVEL 141 MEQ/L (136-145); TROPONIN I < 0.02 NG/ML (< 0.10)
[2020-03-24 04:00] VITALS: BP 125/71
[2020-03-24 08:00] VITALS: BP 120/67
[2020-03-24] MEDS ORDERED: DIVALPROEX 500 MG TAB PO SCH (09:00)
[2020-03-24] MEDS ORDERED: ENOXAPARIN 40MG/0.4ML SYRINGE (J1650 PER 10MG) SC SCH (09:00)
[2020-03-24] MEDS ORDERED: ASPIRIN 81 MG ENTERIC TAB PO SCH (09:00)
[2020-03-24] MEDS ORDERED: BACITRACIN OINTMENT 30GM TUBE TOP SCH (09:00)
[2020-03-24] MEDS ORDERED: DOCUSATE SODIUM 100 MG CAP PO SCH (09:00)
[2020-03-24] MEDS: HumaLOG INSULIN (NovoLOG) PER UNIT SC SCH ×3 (09:10→17:25)
[2020-03-24 11:30] LABS: PROLACTIN 10.8 NG/ML (2.1-17.7)
--- NOTE | 2020-03-24 11:57 | DS.PDOC ---
Discharge Summary General Date of Admission Mar 23, 2020 at 20:37 Date of Discharge 03/24/2020 Attending Physician: YASMIN HARO MD Discharge Summary PROCEDURES PERFORMED DURING STAY: None ADMITTING DIAGNOSES: 1. Fall DISCHARGE DIAGNOSES: 1. Fall COMPLICATIONS/CHIEF COMPLAINT: Intercranial Hemorrhage,Fall. HISTORY OF PRESENT ILLNESS: Mr. Shamir John is a 79 yr. old male who presented with a fall. He was admitted on March 19 for rehab for subarachnoid hemorrhage 2/2 amyloid angiopathy. He recently had an unwitnessed fall in the bathroom. The fall left him w/ a small laceration on the left side of his head that was bleeding when the RN found him. HOSPITAL COURSE: None. DISCHARGE MEDICATIONS: Please see below. ALLERGIES: Please see below. PHYSICAL EXAMINATION ON DISCHARGE: VITAL SIGNS: Please see below. GENERAL: No acute distress, alert and oriented x3 CARDIOVASCULAR EXAMINATION: RRR, normal S1 and S2, no murmurs or gallops RESPIRATORY EXAMINATION: Lungs clear to auscultation bilaterally, no wheezing or crackles ABDOMINAL EXAMINATION: normal bowel sounds x4, nontender, nondistended, no hepatomegaly EXTREMITIES: +2/4 pedal pulses bilaterally, 5/5 strength testing in upper and lower extremities bilaterally NEUROLOGICAL EXAMINATION: Cranial nerves 2-12 intact, sensation to light touch and pinprick intact bilaterally in both upper and lower extremities, normal [id number] test LABORATORY DATA: Please see below. IMAGING: CT of head reported by Dr. Wong showed scattered acute subarachnoid hemorrhage along left frontal, parietal, and occipital lobes, trace subarachnoid hemorrhage along the medial frontal lobe, and questionable tiny hyperdense peripheral right MCA branch. PROGNOSIS: ACTIVITY: As tolerated DIET: Normal diet DISCHARGE PLAN: 1. Will discharge patient to ARU 2. Obtain orthostatics - Addendum: 03/24/2020 1635, orthostatics came back negative, will continue with discharging patient to ARU 3. Will speak to floor assembler regarding loop recorder readings - Addendum: 03/24/20 1701, spoke to Dr. Sanchez, stated that there was no event in telemetry on the time of his fall 4. Continue aspirin 5. Discontinue Lovenox DISCHARGE INSTRUCTIONS: 1. Patient will be discharged to ARU today ITEMS TO FOLLOWUP ON ON OUTPATIENT: 1. Antenna Rigger follow-up on loop recorder 2. Any changes in medication once orthostatic is received DISCHARGE CONDITION: Stable TIME SPENT ON DISCHARGE: Greater than 30 minutes. Vital Signs/I&Os Vital Signs Date Time Temp Pulse Resp B/P (MAP) Pulse Ox O2 Delivery O2 Flow Rate FiO2 03/24/20 08:00 97.1 61 16 120/67 (84) 96 Room Air I&O- Last 24 Hours up to 6 AM 03/24/20 06:00 Intake Total 120 ml Output Total 750 ml Balance -630 ml Laboratory Data Labs 24H Laboratory Tests 2 03/23/20 21:24: Nucleated Red Blood Cells % (auto) 0.0, Anion Gap 8, Glomerular Filtration Rate > 60.0, Calcium Level 8.8, Phosphorus Level 3.6, Magnesium Level 1.9, Troponin I < 0.02, Thyroid Stimulating Hormone (TSH) 2.700, Prolactin 10.8, Valproic Acid (Depakene) Level 63.1 03/24/20 02:59: Nucleated Red Blood Cells % (auto) 0.0, Anion Gap 8, Glomerular Filtration Rate > 60.0, Calcium Level 8.3L, Troponin I < 0.02 03/24/20 08:44: Troponin I < 0.02 CBC/BMP Laboratory Tests 03/23/20 21:24 03/24/20 02:59 03/24/20 08:48 Discharge Medications Scheduled Allopurinol (Allopurinol) 100 Mg Tablet, 100 MG PO QHS, (Reported) Aspirin (Aspirin EC) 81 Mg Tablet.dr, 81 MG PO DAILY, (Reported) Divalproex Sodium (Depakote) 500 Mg Tablet.dr, 500 MG PO BID, (Reported) Docusate Sodium (Colace) 100 Mg Capsule, 100 MG PO BID, (Reported) Enoxaparin Sodium (Enoxaparin Sodium) 40 Mg/0.4 Ml Syringe, 40 MG SC DAILY, (Reported) RECEIVED AT [facility], FINISH DATE 04/16/20 Glimepiride (Glimepiride) 2 Mg Tablet, 2 MG PO DAILY, (Reported) Losartan Potassium (Losartan Potassium) 100 Mg Tablet, 100 MG PO QPM, (Reported) Metformin HCl (Metformin HCl ER) 500 Mg Tab.er.24h, 500 MG PO QAM, (Reported) Multivitamins (Thera M Plus Tablet) 1 Each Tablet, 1 TAB PO DAILY, (Reported) Scheduled PRN Acetaminophen (Acetaminophen) 325 Mg Tablet, 650 MG PO Q6H PRN for PAIN, (Reported) Allergies Coded Allergies: No Known Allergies (Verified Allergy, Unknown, 03/19/20) GME ATTESTATION GME ATTESTATION My faculty preceptor for this patient encounter was physically present during the encounter and was fully available. All aspects of the patient interview, examination, medical decision making process, and medical care plan development were reviewed and approved by the faculty preceptor. The faculty preceptor is aware and concurs with the plan as stated in the body of this note and will attest to such by his/her cosignature. GME ATTESTATION GME ATTESTATION My faculty preceptor for this patient encounter was physically present during the encounter and was fully available. All aspects of the patient interview, examination, medical decision making process, and medical care plan development were reviewed and approved by the faculty preceptor. The faculty preceptor is aware and concurs with the plan as stated in the body of this note and will atte st to such by his/her cosignature. GME ATTESTATION GME ATTESTATION My faculty preceptor for this patient encounter was physically present during the encounter and was fully available. All aspects of the patient interview, examination, medical decision making process, and medical care plan development were reviewed and approved by the faculty preceptor. The faculty preceptor is aware and concurs with the plan as stated in the body of this note and will attest to such by his/her cosignature. MOLLY AVERY OMS-IV Mar 24, 2020 11:57
[2020-03-24 12:00] VITALS: BP_SYST 129; BP_SYST 130; BP_SYST 133; BP_DIAS 71; BP_DIAS 74; BP_DIAS 77
[2020-03-24 16:00] VITALS: BP 126/64
== END 2020-03-24 18:11 ==
LOC: M PCU 20:37 → ENRESERV 20:41
PROVIDERS: ADMIT Internal Medicine; ATTEND Internal Medicine
DX: R55 Syncope and collapse (principal); S01.91XA Laceration without foreign body of unspecified part of head, initial encounter; W19.XXXA Unspecified fall, initial encounter; Y92.002 Bathroom of unspecified non-institutional (private) residence as the place of occurrence of the external cause; Y93.9 Activity, unspecified; Y99.9 Unspecified external cause status; I10 Essential (primary) hypertension; E11.9 Type 2 diabetes mellitus without complications; N18.30 Chronic kidney disease, stage 3 unspecified; Z86.73 Personal history of transient ischemic attack (TIA), and cerebral infarction without residual deficits; I68.0 Cerebral amyloid angiopathy; E07.9 Disorder of thyroid, unspecified; Z79.82 Long term (current) use of aspirin; Z79.84 Long term (current) use of oral hypoglycemic drugs; Z79.899 Other long term (current) drug therapy; Z87.891 Personal history of nicotine dependence; Z91.81 History of falling
CPT/HCPCS: 36415; 70450; 80048; 80164; 83735; 84100; 84146; 84443; 84484; 85018; 85027; G0378